=== PATIENT | female | born 1980 | race Caucasian/White ===

== ENCOUNTER 2018-08-10 06:49 | Inpatient (IN) | payer MEDICAID ==
[~2018-08-10] VITALS: Ht 154.9 cm; Wt 61.2 kg
[~2018-08-10 06:49] MED LIST: FERR325T6 PO
[2018-08-10 07:56] LABS: CLARITY URINE CLOUDY (CLEAR); COLOR URINE RED (YELLOW); KETONES URINE TRACE (NEGATIVE); LEUKOCYTE ESTERASE URINE 1+ (NEGATIVE); NITRITE URINE NEGATIVE (NEGATIVE); OCCULT BLOOD URINE 3+ (NEGATIVE); PH URINE 5.5 (4.5-8.0); PROTEIN URINE 3+ (NEGATIVE); SPECIFIC GRAVITY URINE 1.027 (1.005-1.030); UROBILINOGEN URINE 0.2 E.U./dL (0.2-1.0)
[2018-08-10] MEDS ORDERED: LACTATED RINGERS 1,000 ML IV SCH (08:00)
[2018-08-10 08:13] LABS: UCG SCREEN NEGATIVE
[2018-08-10] MEDS ORDERED: NORMAL SALINE 0.9% 10 ML SYR ONE (08:46)
[2018-08-10] MEDS ORDERED: SKIN ADHESIVE 0.7 GM EA TOP ONE (08:46)
[2018-08-10] MEDS ORDERED: LIDOCAINE HCL 1% 20ML VIAL (Pyxis) INJ ONE (08:46)
[2018-08-10] MEDS ORDERED: BUPIVACAINE HCL/PF 0.5% (5MG/ML) 10ML ONE (08:46)
[2018-08-10] MEDS ORDERED: BACITRACIN 50,000 UNITS/VIAL ONE (08:47)
[2018-08-10] MEDS ORDERED: CEFOXITIN SODIUM 2 G in DEXT 5% WATER 100 ML IV ONE (09:00)
[2018-08-10] MEDS ORDERED: PROPOFOL 200MG/20ML VIAL IV ONE (09:54)
[2018-08-10] MEDS ORDERED: SUCCINYLCHOLINE CHLORIDE 200MG/10ML IV ONE (09:55)
[2018-08-10] MEDS ORDERED: GLYCOPYRROLATE 0.2 MG/ML 2ML VIAL ONE ×2 (09:57→10:58)
[2018-08-10] MEDS ORDERED: ROCURONIUM BROMIDE 10MG/ML VIAL 5ML IV ONE (09:57)
[2018-08-10] MEDS ORDERED: MIDAZOLAM HCL 2 MG/2 ML VIAL ONE (09:59)
[2018-08-10] MEDS ORDERED: ONDANSETRON HCL 4MG/2ML INJ ONE ×2 (10:16→10:17)
[2018-08-10] MEDS ORDERED: NEOSTIGMINE METHYLSULFATE 1MG/ML 10 ML VIAL ONE (10:58)
[2018-08-10] MEDS ORDERED: HYDROMORPHONE HCL/PF 2MG/ML CPJ IV PRN ×2 (11:45→12:15)
[2018-08-10] MEDS ORDERED: ONDANSETRON HCL 4MG/2ML INJ IV PRN (12:15)
[2018-08-10 13:10] VITALS: BP 124/73
[2018-08-10 13:30] VITALS: BP 124/73
[2018-08-10] MEDS: KETOROLAC 30MG/ML VIAL IV SCH ×2 (14:02→21:10)
[2018-08-10 16:00] VITALS: BP 107/62
[2018-08-10] MEDS: SODIUM CHLORIDE 0.45% 1,000 ML IV SCH (16:24)
[2018-08-10 20:00] VITALS: BP 109/71
[2018-08-11] VITALS: BP 108/67
[2018-08-11 04:00] VITALS: BP 105/62
[2018-08-11] MEDS: KETOROLAC 30MG/ML VIAL IV SCH (06:08)
[2018-08-11] MEDS: SODIUM CHLORIDE 0.45% 1,000 ML IV SCH ×2 (06:09→08:14)
[2018-08-11 08:00] VITALS: BP 113/53
[2018-08-11 10:23] VITALS: BP 110/67
[2018-08-11 12:00] VITALS: BP 110/67
== END 2018-08-11 12:00 | disposition home or self-care (01) | DRG 263 ==
LOC: OR 06:49 → 6EST 06:50
PROVIDERS: ADMIT Specialist; ATTEND Specialist
PROC: 0FT44ZZ Resection of Gallbladder, Percutaneous Endoscopic Approach (ICD-10-PCS; principal; 2018-08-10)
DX: K80.10 Calculus of gallbladder with chronic cholecystitis without obstruction (principal)
CPT/HCPCS: 81025; 88304; J0330; J0694; J1170; J1885; J2250; J2405; J2704; J2710; J3490; J7060